=== PATIENT | male | born 1970 | race Caucasian/White ===

== ENCOUNTER 2018-10-02 17:41 | Emergency (ER) | payer BC ==
--- NOTE | 2018-10-02 17:53 | UC ---
Lower Extremity/Ankle HPI - HPI Summary HPI Summary: 48 yo male presents with RIGHT knee pain. He tells me that late last week he developed right knee pain that was worse with walking, going up/down stairs, and kneeling. He rested, took ibuprofen, and applied ice and had good relief. 2 days ago he was feeling better, but tried to kneel and felt a "shearing" pain from his kneecap to his mid thigh. Yesterday was painful to bend and walk. Today is improved with RICE and ibuprofen, but still mildly painful with bending. Denies injury, numbness, tingling. - History of Current Complaint Stated Complaint: KNEE PAIN Time Seen by Provider: 10/02/18 17:53 Hx Obtained From: Patient Onset/Duration: Sudden Onset Severity Initially: Mild Severity Currently: Mild Pain Intensity: 3 Pain Scale Used: 0-10 Numeric Aggravating Factor(s): Standing, Ambulation Alleviating Factor(s): Rest, Elevation, Ice Able to Bear Weight: Yes - Allergies/Home Medications Allergies/Adverse Reactions: Allergies Allergy/AdvReac Type Severity Reaction Status Date / Time No Known Allergies Allergy Verified 10/02/18 17:46 Home Medications: Home Medications Ibuprofen [Advil] 200 mg PO Q6HR PRN 10/02/18 [History Confirmed 10/02/18] PMH/Surg Hx/FS Hx/Imm Hx Endocrine History: Diabetes, Dyslipidemia Cardiovascular History: Hypertension - Surgical History Surgical History: None - Family History Known Family History: Positive: Unknown - Social History Occupation: Employed Full-time Lives: With Family Alcohol Use: Occasionally Substance Use Type: None Smoking Status (MU): Never Smoked Tobacco Review of Systems All Other Systems Reviewed And Are Negative: Yes Constitutional: Positive: Negative Skin: Positive: Negative Respiratory: Positive: Negative Cardiovascular: Positive: Negative Neurovascular: Positive: Negative Musculoskeletal: Positive: Other: - Right knee pain Neurological: Positive: Negative Psychological: Positive: Negative Physical Exam - Summary Physical Exam Summary: GENERAL: NAD. WDWN. No pain distress. SKIN: No rashes, sores, lesions, or open wounds. CHEST: No accessory muscle use. Breathing comfortably and in no distress. CV: . Pulses intact popliteal, PT, and DP. Cap refill <2seconds MSK: Right knee: NTTP. FROM with mild pain during flexion. Tendons intact. No crepitus. Strength 5/5. No edema or obvious bony deformities. No patella apprehension. Negative Christina, A/P drawer, Bianca, and varus/valgus stress. NEURO: Alert. Sensations intact and symmetric B/L LEs PSYCH: Age appropriate behavior. Triage Information Reviewed: Yes Vital Signs: Vital Signs: Temp Pulse Resp BP Pulse Ox 97.5 F 88 18 145/80 100 10/02/18 17:45 10/02/18 17:45 10/02/18 17:45 10/02/18 17:45 10/02/18 17:45 Vital Signs Reviewed: Yes Lower Extremity Course/Dx - Course Course Of Treatment: XR: No radiologist reading after 1800, therefore wet read by myself is negative for acute process. Discussed with pt. Suspect strain of knee and advised to RICE, ERAN wrap, and take ibuprofen/tylenol for discomfort. F /u with PCP if symptoms do not improve. - Differential Dx/Diagnosis Provider Diagnosis: Right knee pain Discharge - Sign-Out/Discharge Documenting (check all that apply): Patient Departure All imaging exams completed and their final reports reviewed: Yes - Discharge Plan Condition: Stable Disposition: HOME Patient Education Materials: Knee Pain (ED) Referrals: Rico Robert MD [Primary Care Provider] - Additional Instructions: If you develop a fever, shortness of breath, chest pain, new or worsening symptoms - please call your PCP or go to the ED. Your blood pressure was mildly elevated at todays visit. Please see your primary provider within 4 weeks for recheck and re-evaluation. 1) Rest and apply ice to your knee to decrease pain and swelling 2) May take tylenol or ibuprofen for discomfort 3) Use the ERAN wrap for added support and comfort 4) If your symptoms do not improve in around 10 days or so, please follow up with your primary doctor. - Billing Disposition and Condition Condition: STABLE Disposition: Home
[2018-10-02 17:54] VITALS: BP 145/80
== END 2018-10-02 18:38 | disposition home or self-care (01) ==
LOC: UCEAST 17:41
DX: M25.561 Pain in right knee (principal); M25.461 Effusion, right knee
CPT/HCPCS: 99212; G0463